=== PATIENT | female | born 1985 | race Caucasian/White ===

== ENCOUNTER 2016-07-15 11:55 | Inpatient (IN) | payer OTHER ==
[~2016-07-15] VITALS: Ht 175.3 cm; Wt 72.1 kg
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
[2016-07-15 14:23] VITALS: BP 111/67
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
--- NOTE | 2016-07-15 16:28 | PN- Att Addend ---
Attending Addendum Attending Brief Note Patient seen and examined. Plan of care discussed with the medical team and the patient. Available lab work and radiology test reports were reviewed. Chief complaint- hallucinations History of present illness Pt is a 31yo female who was transferred from [facility] as a direct admit due to new onset of hallucinations starting 3 months ago. Pt feels as if she is being electrocuted. She also has paranoid ideation and thinks that people are watching her and following her. 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 Patient was admitted to psychiatry unit for further treatment for her schizophrenia. Patient has been noticing some electric shocklike sensation intermittently. She also feels something crawling over her skin. Past history- depression and anxiety; ADHD Allergies- none reported to medicines Family history- father had type 2 diabetes and of cancer; mom is alcoholic and one nephew has type 1 diabetes ROS; pulpotomy system was completed and is essentially negative except as described above. 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 She denies any drug abuse or alcohol abuse. She does not smoke but uses electronic cigarettes. Medication list reviewed Vital Signs Date Time Temp Pulse Resp B/P Pulse O2 O2 Flow FiO2 Ox Delivery Rate 07/15 1423 96.1 96 111/67 Exam: General: Patient awake alert oriented without any distress; rather flat affect CVS: S1 plus S2 without any murmur or gallops Chest: Few scattered crepitation without any wheeze. There is no respiratory distress. 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 test has been ordered. Assessment * Schizophrenia * History of anxiety and depression * History of ADHD Plan * Patient currently does not have any active medical issues and needing active interventions * Report of schizophrenia as per psychiatry
[2016-07-15 19:55] VITALS: BP 94/61
[2016-07-15] MEDS ORDERED: ADDERALL 10 MG10 MG PO (22:00)
[2016-07-15] MEDS ORDERED: ADDERALL XR 3030 MG PO (22:03)
--- NOTE | 2016-07-15 22:08 | NUR ---
Pt is in bed during change of shift pt c/o feeling lethargic and tired. Pt mood is stable affect is constricted. Pt is compliant and cooperative with the staff. Vital signs are stable c/o no pain. Will continue to monitor the pt overnight.
[2016-07-16 07:40] VITALS: BP 126/69
[2016-07-16 12:08] VITALS: BP 121/65
--- NOTE | 2016-07-16 13:01 | NUR ---
PT HAS BEEN IN HER ROOM MOST OF THE DAY. SHE DID ATTEND PLANNING MEETING, AND CAME UP WITH THE GOAL TO FIND WAYS TO COPE WITH RACING THOUGHTS. SHE IS PLEASANT, AND COOPERATIVE WHEN SPOKEN TO, AND ADJUSTING WELL TO THE MILIEU. SHE DENIES HAVING THOUGHTS TO HURT HERSELF WHEN ASKED.
[2016-07-16 15:43] VITALS: BP 101/61
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
--- NOTE | 2016-07-16 18:26 | NUR ---
PT HAS BEEN VISIBLE MORE IN THE MILIEU THIS EVENING. SHE HANGS OUT IN THE LOUNGE A LOT WATCHING TELEVISION WITH HER PEERS. SHE HAS BEEN PLEASANT, AND COOPERATIVE. PT DENIES THOUGHTS OF HURTING HERSELF WHILE ON THE UNIT.
[2016-07-16 19:05] VITALS: BP 115/50
--- NOTE | 2016-07-17 05:49 | NUR ---
PT APPEARD TO SLEEP WELL.
[2016-07-17 08:04] VITALS: BP 101/61
[2016-07-17 12:06] VITALS: BP 101/55
--- NOTE | 2016-07-17 13:21 | NUR ---
Pt is pleasant, respectful, calm, cooperative and did attend planning meeting but did not attend the afternoon art group, withdrawn and isolative to room and resting for a majority of today, tending to ADLs, no complaints reported, is appropriate overall, mood stable with full range affect.
[2016-07-17 15:36] VITALS: BP 100/54
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
[2016-07-17 20:09] VITALS: BP 102/54
--- NOTE | 2016-07-17 23:23 | NUR ---
THE PATIENT CONTINUED TO BE SOMEWHAT VISIBLE BUT ON THE PERIPHERY. HER GOAL WAS TO SPEAK ABOUT MEDS WITH THE COVERING PSYCHIATRIST AND A MED WAS ADDED FOR ANXIETY.
--- NOTE | 2016-07-18 06:04 | NUR ---
PT APPEARED TO SLEEP THRU THE NIGHT.
[2016-07-18 08:25] VITALS: BP 96/54
[2016-07-18 12:31] VITALS: BP 95/62
--- NOTE | 2016-07-18 13:28 | NUR ---
PT IS COMPLIANT AND COOPERATIVE. MOOD IS STABLE WITH A FLAT AFFECT. PT DENIES SI AT THIS TIME, NO COMPLAINTS OFFERED. PT HAS BEEN ISOLATIVE IN BED, SLEEPING MOST OF DAY. PT HAS MINIMAL INTERACTION WITH PEERS AND STAFF. NO SIGNS OF ACTIVE PSYCHOSIS NOTED, NO AH/VH REPORTED. PT HAS REFUSED GROUPS. VITALS ARE STABLE, APPETITE IS GOOD.
--- NOTE | 2016-07-18 14:36 | CP SOUTH PROGRESS NOTE PSYCH ---
Psych (Inpt) Progress Note Progress Note Include the following elements, when applicable: Involvement in the active treatment of the patient with behavioral observations of the patient and the patient's response to the treatment. Review of the ongoing treatment process in the context of the treatment plan. Indication of how multi-disciplinary staff members are carrying out the treatment plan. Plans for future interventions and recommendations for revision of the treatment plan. Liaison with other physicians/providers. Progress Note: [I discussed this patient's progress to date, current mental status, treatment process in the context of the treatment plan, and discharge planning with staff/ team in the daily morning inpatient team meeting. I also met with the patient myself in individual session.] S: "I'm in pain, I'm withdrawling from nicotine and stimulants." O: Current Medications Sig/Geovany Start time Last Medication Dose Route Stop Time Status Admin Acetaminophen 650 MG .STK-MED ONE 07/17 1535 DC PO 07/17 1536 Acetaminophen 650 MG Q6-PRN PRN 07/15 1530 AC 07/17 PO 1540 Al Hydroxide/Mg 30 ML Q6PRN PRN 07/15 1530 AC Hydroxide PO Lorazepam 1 MG AT BEDTIME 07/18 220 UNVr PO Lorazepam 0.5 MG Q8P PRN 07/18 1445 UNVr PO 07/25 1430 Lorazepam 1.5 MG AT BEDTIME 07/17 2200 DC 07/17 PO 2144 Lorazepam 0.5 MG Q6-PRN PRN 07/17 1230 DC 07/17 PO 07/24 1229 1712 Magnesium Hydroxide 30 ML AT BEDTIME PRN 07/15 1530 AC PO Nicotine 14 MG 0800 07/18 1430 AC TOP Nicotine 2 MG Q2 HRS NEEDED PRN 07/16 1830 AC 07/18 PO 1052 Risperidone 2 MG AT BEDTIME 07/18 2199 UNVr PO Risperidone 1 MG AT BEDTIME 07/17 2200 DC 07/17 PO 2144 Sertraline HCl 25 MG DAILY 07/17 1552 AC 07/18 PO 1052 Vital Signs Date Time Temp Pulse Resp B/P Pulse O2 O2 Flow FiO2 Ox Delivery Rate 07/18 1231 97 95/62 07/18 0825 97.6 98 96/54 07/17 2008 98.3 92 102/54 07/17 1536 84 100/54 A: Chart, progress notes, VS, labs (see [facility] referral) and medication list were reviewed. Met with patient today with Jonna Gautam LCSW. Patient presented disheveled, and A &Ox3. Speech was normal in rate, tone and volume. Affect was labile, occasionally tearful. Eye contact was poor. She described her mood as "sad." She appeared anxious recounting the events leading to CPS admission. She described the events leading to her CPS inpatient admission from [facility] ED. She reported presenting to [place] ED secondary to experiencing tactile hallucinations ("feelings of being electricuted") and paranoia of people following her, hacking into her computer and believing that her identity was stolen. She denied further episodes of TH or paranoia. She reported feeling safe on unit. She denied auditory and visual hallucinations, homicidal ideation. She denied passive and active suicidal ideation, plans or intent. She reported sadness/depression of 6/10 (10 being the worst) and anxiety of 9/10 (10 being the worst). She reported chronic school related stress. 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 She reported increased anxiety secondary to school, in addition to a decline in hygeine, and inability to handle academic deadlines. She reported fair sleep and appetite. Thought process was linear. Thought content was anxious/sad. Cognition was grossly intact. Patient reported toelrating all medications well and denied untoward medication effects. She was agreeable to decrease Ativan from 1.5m QHS to 1mg QHS for anxiety/insomnia; she was also agreeable to increase Risperdal from 1mg QHS to 2mg QHS for mood stabilization/clear thoughts. Reviewed the risk/benefit/SE profiles of both Risperdal and Ativan with the patient who verbalized understanding and was agreeable to continue taking. Also, reviewed the risk/ benefit/se profiles of Gabapentin to target anxiety. Patient verbalized understanding and was agreeable to trial. P: 1. Continue monitoring patient on unit for safety, suicidal ideation, mood and psychosis. 2. Increase Risperdal from 1mg to 2mg QHS for mood stabilization/clear thoughts. 3. Continue Zoloft 25mg QAM for depression/anxiety. 4. Start Gabapentin 300mg Q8H prn for anxiety. 5. Start Nicoderm CQ 14mg patch daily for tobacco cessation. 6. Lipid panel, Hemoglobin A1C and TSH ordered for tomorrow morning (were not completed at [facility]). 7. Dispo planning per primary team.
--- NOTE | 2016-07-18 14:57 | SOCIAL WORKER TX PLAN PSYCH ---
Treatment Plan - Please Document: - Evidence that there is ongoing collaboration between - the patient and the interdisciplinary team, - including the patient's active participation and - responsibility for engaging in the treatment regimen, - and that the treatment plan is individualized and - relevant to the patient's conditions. - Treatment plan should reflect documentation indicating - that all active therapeutic efforts are included. Strengths/Capabilities: Pt has good insight into her need for tx and asks for help Physical Limitations (Interventions): none reported Patient Identified Trmt Goals: "I need to take better care of myself" Discharge Plan: [facility] and return home Problem/Goals #1 Problem #1: psychosis Goal (Short Term): Patient will explore medication changes to address hallucinations and paranoia Goal (Contact Center Professional): Patient will have diminished psychosis as evidenced by observation and self- report Interventions: Patient will be offered medication management with the psychiatrist/ INSIDE ACCOUNT REPRESENTATIVE, patient will be offered groups on symptom management, coping skills, goals group , focus group, art therapy, accupuncture. Geophysical Support Specialist will assess for psychosis daily, explore strengths and ways to work on self care. health care social worker will hold family meeting and assist with setting up aftercare. DSM5/PS Stressors/Medical Prob Diagnosis' (DSM 5, Stressors, Medical): F29 Unspecified schizophrenia spectrum and other psychotic disorder Current GAF: 25 Treatment Team - Responsibilities of members of the treatment team include: - Medication Management- MD or INSIDE ACCOUNT REPRESENTATIVE - Medication Administration and Monitoring- Nurse - Group Therapy- Occupational Therapist - 1:1 Therapy,Disch Planning,family involvement-Geophysical Support Specialist
--- NOTE | 2016-07-18 14:57 | SOCIAL WORKER PROG NOTE PSYCH ---
Social Work Progress Note Progress Note Mariely has been in bed all day. Stated she is in pain from nicotine, caffeine , and Adderall withdrawal. She talked about tactile hallucinations prior to hospitalization of feeling like she was being electrocuted. She said this sensation never happened to her before. She has been experiencing paranoia since March. She said she feels like someone is following her and she believes that her computer is being hacked. She currently goes to school at [employer] in [place]. She lost her research project while she was at school, as she believes everything was deleted. She believes that someone did this to her intentionally. The stress of going to graduate school seems to be weighing heavily on her. She said this is the 2nd time she has tried to go to graduate school. First time being in [place]. She did not complete last semesters work and she does not believe that she will be able to catch up at this point. She was tearful while discussing this and feels that she has failed. She is currently enrolled in 1 class on campus and 3 online courses. She drives from [place] to [place] once a week where she usually stays the night and drives back the next day. She has been seeing Maki Palacios APRN in [place] since October 2015. She prescribes her Adderall. She was connected to a therapist , but started missing appts. and hasn't rescheduled. Mariely lives with her Dad. She said her Dad is supportive of her, but she doesn't describe him of understanding when it comes to her mental health. She refuses to have her Dad in for a meeting at this time. I tried to get her to see how having family in can help educate. She reports not having any friends or significant other in her life. She usually enjoys spending time doing statistics on the computer, reading and driving. She doesn't work. Dad supports her basic needs. She denies any current hallucinations. She denies any SI/ HI. She rates her sadness at a 6 (1-10, 10 being worst). Anxiety at a 9. She reports that the hallunications have not happened since her admission and that the paranoia has decreased. She doesn't take care of herself very well. She said she doesn't eat well and doesn't attend to her personal hygiene very well. States she doesn 't handle deadlines and pressure and that she is feeling very stressed. Encouraged her to get to some groups tomorrow. I told her I will not be here tomorrow, but another social media marketing manager will be covering. She
[2016-07-18 15:52] VITALS: BP 121/66
--- NOTE | 2016-07-18 17:47 | IP INCIDENTAL NOTE PSYCH ---
Incidental Note Notation: left for patient's outpatient psychiatric nurse practitioner, Maki Palacios APRN ([phone]) this evening. Requested return call to obtain collateral information on patient.
[2016-07-18 19:37] VITALS: BP 124/66
--- NOTE | 2016-07-18 21:07 | NUR ---
PT IS CALM, COOPERATIVE WITH STAFF AND PEERS, AND COMPLIANT WITH UNIT RULES. PT CAN AT TIMES APPEARS TO BE SLIGHTLY ANXIOUS. IS IN PT ROOM FOR THE MOST PART, ISOLATING SELF FROM THE MILIEU, WITH LIMITED TO NO INTERACTION WITH PEERS, AND LIMITED INTERACTION WITH STAFF. MOOD IS STABLE, AFFECT APPEARS EUTHYMIC, COMMUNICATION APPEARS ORGANIZED AND NORMAL IN ALL RESPECTS, AND APPETITE IS NORMAL. PT DENIES SI AT THIS TIME.
--- NOTE | 2016-07-19 11:17 | NUR ---
PT IS STABLE WITH CONSTRICTED AFFECT. WITHDRAWN AND ISOLATED TO PT ROOM. PT HAS BEEN SLEEPING MOST OF MORNING SHIFT. PT DID NOT ATTEND ANY GROUPS THIS MORNING. OOB FOR VS, MEDICATIONS AND BREAKFAST. VAGUE AND DOES NOT ENGAGE FREQUENTLY WITH OTHERS. PLEASANT AND COOPERATIVE WHEN SHE DOES. VS ARE STABLE AND DENIES ANY SI/HI TO THIS MHW.
[2016-07-19 12:36] VITALS: BP 99/58
[2016-07-19 16:00] VITALS: BP 119/65
--- NOTE | 2016-07-19 16:30 | SOCIAL WORKER PROG NOTE PSYCH ---
Social Work Progress Note Progress Note Pt reports a great deal of stress and pressure and is unsure about graduate school. Pt reports she may not want to include her father in shakila bolesue she feels guilty. She would like Maki Palacios to know what is going on. Pt reports nausea and fatigue especially in the morning. Pt is not requesting the nicotine patch anymore, and stopped Adderrall and decrease caffeine intake. Pt is not feeling clear or stable at this time, but is hopeful.
--- NOTE | 2016-07-19 16:47 | CP SOUTH PROGRESS NOTE PSYCH ---
Psych (Inpt) Progress Note Progress Note Include the following elements, when applicable: Involvement in the active treatment of the patient with behavioral observations of the patient and the patient's response to the treatment. Review of the ongoing treatment process in the context of the treatment plan. Indication of how multi-disciplinary staff members are carrying out the treatment plan. Plans for future interventions and recommendations for revision of the treatment plan. Liaison with other physicians/providers. Progress Note: PSYCHIATRIST NOTE, 07/19/2016: I assumed the care of patient this morning, discussed her presentation and progress to date, current mental status, treatment and discharge planning with staff team in the daily morning ITTM. Patient has apparently expressed reluctance to meet here with her father; however, if she plans to return to his home upon discharge a meeting will be necessary; during session with me today, patient said she would be glad to have her father in for a family meeting; the sooner the better. Her first concern/worry at present is the possibility that she has schizophrenia , a fear partly based upon family history of an uncle with that diagnosis and her only recent but florid hallucinatory experiences, though the latter have been primarily olfactory and gustatory with some visual type and auditory hallucinations denied. 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 Patient might benefit from a mood stabilizer. Currently, patient appears more bewildered, demoralized and disorganized than endogenously depressed.
[2016-07-19 19:45] VITALS: BP 120/57
--- NOTE | 2016-07-19 20:40 | NUR ---
PT IS CALM, COOPERATIVE WITH STAFF AND PEERS, AND COMPLIANT WITH UNIT RULES. PT IS OFTEN OUT OF MILIEU, SLIGHTLY WITHDRAWN AND ISOLATIVE, AT TIMES LETHARGIC, SLEEPING FOR PERIODS OF TIME IN PT ROOM. PT HAS BEEN OBSERVED TEARFUL IN MILIEU. MOOD IS STABLE FOR THE MOST PART, AT TIMES TEARFUL, THOUGH THIS LIFTS, AFFECTS APPEARS EUTHYMIC TO FULL RANGE, COMMUNICATION IS ORGANIZED AND APPEARS NORMAL IN ALL RESPECTS, AND APPETITE IS NORMAL. PT DENIES SI AT THIS TIME.
[2016-07-20 08:00] VITALS: BP 118/66
[2016-07-20 12:22] VITALS: BP 101/58
--- NOTE | 2016-07-20 13:16 | SOCIAL WORKER PROG NOTE PSYCH ---
Social Work Progress Note Progress Note Mariely is doing well today. She has been attending groups. States she loves accupuncture and finds it helpful. Reports feeling ill yesterday from the nicotine patch, so she took it off. She says she is feeling a little groggy and thinks it is from not having as much caffiene, smoking her vape pen, and withdrawal from Adderall. She reports never wanting to go on a stimulant again. She feels safe on the unit and her paranoia has ended. She is thinking about taking a break from school to focus on getting herself well again. She is open to attending [facility] if her insurance will cover it. She also signed a release for her Dad and is open to having him in for a meeting. Talked about discharge towards the end of the week. Discussed getting back into exercise. She enjoys jogging and walking on the beach. Called Dad and left a message to set up a meeting for tomorrow. He is available to come in for 2pm.
--- NOTE | 2016-07-20 14:12 | NUR ---
PT IS COMPLIANT AND COOPERATIVE. MOOD IS STABLE WITH A CONSTRICTED AFFECT. PT DENIES SI AT THIS TIME, NO COMPLAINTS OFFERED. NO ACTIVE PSYCHOSIS NOTED, NO REPORTS OF PARANOID THOUGHT CONTENT. PT HAS BEEN OUT IN THE COMMUNITY MORE, HAVING SOME INTERACTION WITH PEERS AND STAFF. PT IS ATTENDING GROUPS. VITALS ARE STABLE, APPETITE IS GOOD.
[2016-07-20 16:00] VITALS: BP 118/58
--- NOTE | 2016-07-20 19:11 | CP SOUTH PROGRESS NOTE PSYCH ---
Psych (Inpt) Progress Note Progress Note Include the following elements, when applicable: Involvement in the active treatment of the patient with behavioral observations of the patient and the patient's response to the treatment. Review of the ongoing treatment process in the context of the treatment plan. Indication of how multi-disciplinary staff members are carrying out the treatment plan. Plans for future interventions and recommendations for revision of the treatment plan. Liaison with other physicians/providers. Progress Note: PSYCHIATRIST NOTE, 07/20/2016: I discussed this patient's progress to date, current mental status, treatment and discharge planning with staff team in the daily morning ITTM and met with her again myself in individual session. Patient reports improved sleep with Risperdal, 2mg HS, and denied any side effects, akathisia, oversedation, muscle stiffness, etc. She will receive last tapering dose of Ativan, 0.5mg tonight. Patient is settling into the milieu and appears to be receiving benefit from the group program; she is positive re discharging to the behavioral health [facility] and wants to continue on medical leave from school until she can concentrate again. Patient continues to report significant diminution of racing thoughts and complete absence of paranoia ideation. She still looks rather tired/fatigued and bedraggled, demoralized by what she had been through, plus the escalation in difficulty over the past few months; the latter may have been significantly contributed to by prescription of high dose amphetamine (Adderall) . Patient's sleep is improving and this is helping. We are planning to have a meeting with patient and her father tomorrow afternoon , 07/21/2016.
[2016-07-20 19:28] VITALS: BP 111/61
--- NOTE | 2016-07-20 20:59 | NUR ---
PT IS VISIBLE ON UNIT, MOSTLY STAYING TO HERSELF AND STUDYING OR READING BOOKS. WILL ISOLATE AT TIMES. PLEASANT AND COOPERATIVE WITH STAFF. NO COMPLAINTS OR SI REPORTED. PT HAS A STABLE MOOD AND CONSTRICTED/EUTHYMIC AFFECT.
--- NOTE | 2016-07-21 06:31 | NUR ---
PT APPEARED TO SLEEP.
[2016-07-21 07:56] VITALS: BP 99/60
--- NOTE | 2016-07-21 11:43 | NUR ---
PT APPEARS LESS ISOLATIVE AND WITHDRAWN TODAY, NO ISSUES OR COMPLAINTS REPORTED OR OBSERVED, ATTENDED GROUPS AND WAS ENGAGING, MOOD STABLE WITH FULL RANGE AFFECT, VITAL SIGNS ARE STABLE, PLANNED TO HAVE A FAMILY MEETING TODAY WELL AND LOOKING FORWARD TO THAT.
[2016-07-21 12:11] VITALS: BP 106/53
--- NOTE | 2016-07-21 15:03 | CP SOUTH PROGRESS NOTE PSYCH ---
Psych (Inpt) Progress Note Progress Note Include the following elements, when applicable: Involvement in the active treatment of the patient with behavioral observations of the patient and the patient's response to the treatment. Review of the ongoing treatment process in the context of the treatment plan. Indication of how multi-disciplinary staff members are carrying out the treatment plan. Plans for future interventions and recommendations for revision of the treatment plan. Liaison with other physicians/providers. Progress Note: PSYCHIATRIST NOTE (FAMILY MEETING), 07/21/2016: I discussed this patient's progress to date, current mental status, treatment and discharge planning with staff team today in the daily morning LOUANN and Jonna Gautam LCSW, and I met with patient and her father in a family session. Initially, father did most of the talking/more or less monopolized the discussion even after his daughter bowed her head and became tearful, trying to disagree with him, clarify how she has been feeling and what she wants to do going forward, at least in the near future. Eventually, we had to intervene to try to point out to patient's father his daughter's obviously intensifying distress. He had been fixated on her getting back to school as quickly as possible despite her attempted protestations that she could not concentrate sufficiently to accomplish the school work she would need to do when she returned and that since she was on medical leave she would be able to defer completing her course work at this time. Eventually, father revealed that he himself had been in psychiatric hospital when he was a young man, spent "90 days " on MU10 at [facility] and was in treatment for 5-6 years, stabilized well on [place]. We discussed [place] therapy with patient and her father, reviewed R/B /SE and father's self-reported very positive past response to this medication; patient agreed to start a therapeutic trial of [place] while still here in hospital; she will receive 300mg today and double to 300mg 2x/day tomorrow.
[2016-07-21 16:18] VITALS: BP 122/57
--- NOTE | 2016-07-21 16:41 | SOCIAL WORKER PROG NOTE PSYCH ---
Social Work Progress Note Progress Note Mariely's Father came in for a family meeting today. Dr. Stephens was also in attendance at the meeting. Mariely reported feelings of fatigue and grogginess. Mariely said she fell asleep after midnight. She was having problems with constipation for about a week, but that seems to have resolved with some Milk of magnesia and prune juice. Dad was pressing the issue around her return to school and not being able to do IOP. He seems to think that it is in her best interest to return. We recommended that she take a leave of absence and go to IOP. Dr. Stephens clearly stated that she was not in any condition to deal with the stress and pressure of school right now. Mariely doesn't feel that she can return and is choosing to do IOP right now. Dad doesn't seem to want to acknowledge that her problems were happening prior to her being put on Adderall. He seems to believe that now that she is off the medication things will be better for her. Pointed out that she was not able to complete school before and that this is more than a medication issue. Ultimately her Dad said it was her decision in the end. Her Father did end up disclosing that mental health issues run in the family and that he has had his own mental health problems starting at age 17 through his early 20's. He was prescribed [place], which was helpful for him. He does not currently take the medication. This was news to Mariely who had never heard this before. Mariely very much wants to do the IOP here at [facility]. I informed her that copay will be 24 dollars a day. She said that was not a problem. She is concerned about a trip that has already been planned to go down to [place]. This is for her nephew's birthday. Dad stated they are leaving 07/27 and returning the 03 of August. I told her I would need to discuss it will IOP. We are planning discharge for tomorrow.
[2016-07-21 19:55] VITALS: BP 110/58
--- NOTE | 2016-07-21 21:23 | NUR ---
PT IS STABLE WITH CONSTRICTED AFFECT. PT HAS BEEN WITHDRAWN YET OUT IN THE COMMUNITY MORE THIS EVENING SHIFT. NOT MUCH ITNERACTION WITH PEERS/STAFF. COMPLAINTS OF A HEADACHE. PT IS APPROPRIATE TO THE UNIT AND WHEN SHE IS OUT IN THE LOUNGE SHE IS SEEN READING A BOOK. COMPLIANT AND COOPERATIVE. VS ARE STABLE AND DENIES ANY SI/HI TO THIS MHW.
--- NOTE | 2016-07-22 05:53 | NUR ---
PT APPEARED TO SLEEP WELL.
[2016-07-22 07:48] VITALS: BP 118/66
--- NOTE | 2016-07-22 10:45 | SOCIAL WORKER PROG NOTE PSYCH ---
Social Work Progress Note Progress Note Chinyere Givens (IOP Coordinator) will introduce herself to Mariely today on the unit prior to discharge to make a connection and inform her of the program. Intake will not happen for IOP until she returns from [place] trip down [place]. Appt. was made for 08/04/16 at 9:30am. I told Mariely that her intake will happen later and that Chinyere will meet with her today. She reports that she is feeling alot better and that coming to the hospital was a life changing experience for her. She talked about how the meeting yesterday with her Dad was huge in the fact that he disclosed his own mental health problems. She said if that meeting didn't happen he probably would have never told her. She said her Dad and her are not very close. She does feel that he may continue to pressure her about returning to school versus taking a break. She knows that is not the right choice for her right now. She is feeling very hopeful and "optimistic" about things. She is not sure if it's the medication, but she states she feels different. Encouraged her to continue to take care of herself and to take steps towards building herself up to eventually return to school if she chooses. She is planning for her Father to pick her up today. We will plan for discharge this afternoon. Called Dr. Maki Palacios back who had left a message the other day. I left a message with her to update her on the clinical status and that she will be following up in our IOP at [place]. Called [facility] to just verify that no auth was needed for inpatient psych treatment. Spoke with giovanna Lane who confirmed that no auth is needed for inpatient psych treatment, only inpatient medical. Reference # [id number].
[2016-07-22] MEDS ORDERED: NICORELIEF4 MG PO (11:21)
[2016-07-22] MEDS ORDERED: RISPERDAL1 M1 PO (11:21)
[2016-07-22] MEDS ORDERED: LITHIUM CARBON300 M4 PO (11:22)
--- NOTE | 2016-07-22 11:29 | NUR ---
WILL BE DISCHARGED TODAY TO [facility] WITH FOLLOW UP AT [facility]. MOOD IS STABLE, FULL RANGE OF AFFECT. DENIED THOUGHTS OF SELF HARM WHEN ASKED. GIVEN EDUCATION ON SUICIDE PREVENTION.
[2016-07-22 12:15] VITALS: BP 103/59
--- NOTE | 2016-07-22 12:37 | CP SOUTH PROGRESS NOTE PSYCH ---
Psych (Inpt) Progress Note Progress Note Include the following elements, when applicable: Involvement in the active treatment of the patient with behavioral observations of the patient and the patient's response to the treatment. Review of the ongoing treatment process in the context of the treatment plan. Indication of how multi-disciplinary staff members are carrying out the treatment plan. Plans for future interventions and recommendations for revision of the treatment plan. Liaison with other physicians/providers. Progress Note: PSYCHIATRIST NOTE (DISCHARGE), 07/22/2016: I discussed this patient's significant progress to date, current mental status, treatment and discharge plans with staff team today in the daily morning ITTM and also met with her again myself in individual session prior to discharging her to intake at the [facility] on 08/04/2016; starting at [facility] will be delayed by a family trip which is very important to patient; she was seen today prior to discharge by Chinyere, director of the IOP's to orient her and familiarize her with program, focus, routine, etc., so as to provide a concrete link for patient to the [facility]; patient is very positive with regard to attending program and to continuing on currently prescribed medications; she denied any side effects related to initial doses of Genesee and will remain on the 300mg 2x/day dose until she starts attending [facility], after which she should have an initial level drawn and may need upward dose adjustment; I did not want her to go away on the upcoming trip on a dose of Genesee which might be associated with side effects. Patient is currently euthymic and cheerful in affect, showing no evidence of suicidal or homicidal ideation, plans , intent or impulses and well aware of the safety plan should she in future come to feel herself at risk of self-harm. We also spoke again about smoking cessation; I recommended she utilize the nicotine gum and also attend the next [facility] after she returns from her trip, on 08/17/2016 at 4pm, facilitataed by Breanne Esquivel LCSW. On discharge, I called into [facility] on [facility] in [place], [place] the following medications for patient: Genesee carbonate, 300mg: i tab 2x/day (600mg daily); #28 with ONE refill ( mood stabilization) Risperdal, 1mg: i tab HS i tab PRN for racing thoughts/disrupted sleep (1-2mg/day); #28 with ONE refill (patient will also be purchasing and utilizing nicotine gum to help her with smoking cessation; she knows that she should NOT smoke cigarettes AND use the nicotine gum at the same time)
--- NOTE | 2016-07-22 12:38 | DISCHARGE SUMMARY REPORT-PSYCH ---
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 visit to [facility] immediately preceding the "direct admission" to [facility], see chart and electronic medical record from this admission) Course Complications: none Consultations: patient was seen for an admission medical H&P by Dante Miller M.D., and followed medically during this admission by the hospitalists/[facility] medical staff Allergies: Coded Allergies: No Known Allergies (07/16/16) Hospital Course/TX Response: (see also detailed daily M.D., MANAGER MARKET DEVELOPMENT, and SEWAGE PLANT ATTENDANT progress notes in the electronic medical record) Initially, patient was reluctant to have a family meeting with her family despite the fact that she expressed her intention of returning to live with him upon discharge; she changed her mind about this and Jonna Gautam SEWAGE PLANT ATTENDANT, and I held one with she and father on 07/21/2016 which proved to be of particular value; during that session, possibly for the first time per patient, father revealed his own history of bipolar disorder, "90 days of treatment on [facility] ([facility] psychiatric unit at that time)" followed by several years of stability in outpatient treatment on Norwalk prophylaxis. Patient agreed to start a trial of Norwalk during this admission and dose titrated up to 600mg/day without complications/side effects, and patient willing to continue the trial on an outpatient basis; we did not consider further upward titration in dose until a Norwalk level is obtained in IOP where she agreed to attend programming after discharge. It was possible to halve preadmission dose of Risperdal to 1mg HS without any increase in symptomatology. Discharge HBIPS - Tobacco Use Treatment Offered Post DC Medications Offered: Script Given-See Med List Post DC Tobacco Treatment Plan: [facility]x [facility] Program Appt Date: 08/17/16 (on 08/17/2016 at 4pm) - EtOH/Drug Use D/O Treatment Offered Post DC Medications Offered: NA-No EtOH/Drug Use D/O Post DC EtOH/SubAbuse TX Plan: NA-No EtOH/Drug Use D/O Metabolic Screening - Screen if on a Neuroleptic Medication - Metabolic screening should include: - Blood Pressure, BMI, Glucose or Hgb A1c, & a - Lipid profile from within the past 365 days. Metabolic Screening () Not Applicable, patient not on a neuroleptic. OR ([X]) Patient on a neuroleptic(s) . Enter below results for Glucose or Hemoglobin A1C, and lipid panel if obtained during the last 365 days. BMI: 23.400 Blood Pressure: 103/59 Laboratory Results (If applicable): glycosolated hemoglobin A1c = 5.2 cholesterol = 164 triglycerides = 112 HDL = 49 LDL = 93 (all drawn on 07/19/2016) Discharge Instructions General Discharge Information Discharge Medications: Discharge Medications (dose, route, frequency, indications): I called into [facility] on [place], [place] on date of discharge: Norwalk carbonate, 300mg: i 2x/day (600mg daily); #28 with ONE refill (mood stabilization) Risperdal, 1mg: i HS (clarify thoughts) i PRN racing thoughts (1-2mg/day); #28 with ONE refill patient also expressed her intention to purchase nicotine gum (to help with smoking cessation) and is well aware that she should not smoke and use nicotine gum at the same time Multiple Neuroleptics: ([X]) Not Applicable OR Document below three failed attempts at monotherapy, or a plan to taper to monotherapy, or augmentation of Clozapine. () Patient's Diet: regular Patient's Activity: without restrictions DC Disposition: to return home with father and then take a short vacation with family prior to beginning to attend [facility] (was visited by Chinyere Badillo, residential program director prior to discharge to introduce herself and patient to her program) Recommendations: Patient will have an intake appointment at [facility] on 2016 at 9:30am and begin programming immediately thereafter. Patient was given a card for the next [facility] scheduled on 08/17/2016 at 4pm, facilitated by Breanne Esquivel LCSW. Copies To: GLADYS GUSMAN,MITCHELL ESQUIVEL LCSW,VINICIUS BADILLO [facility] [place],CHINY[place]
== END 2016-07-22 14:23 | DRG 885 ==
LOC: ENPENDDIS 14:02 → CP SOUTH 14:02 → EDPENDDISTM 14:02 → CP SOUTH 07-19 09:59
PROVIDERS: Registered Nurse Psychiatric/Mental Health; ADMIT Psychiatry & Neurology Psychiatry
DX: F29 Unspecified psychosis not due to a substance or known physiological condition (principal)
CPT/HCPCS: 36415; 93005; 93010; Q2036